=== PATIENT | female | born 1990 | race American Indian/Alaskan Native ===

== ENCOUNTER 2016-04-04 15:48 | Emergency (ER) | payer BC ==
[2016-04-04] MEDS ORDERED: ZOFRAN IM ONE (23:27)
[2016-04-04] MEDS ORDERED: TORADOL IM ONE (23:27)
--- NOTE | 2016-04-04 23:57 | Emergency Department Report ---
ED Headache HPI - General Chief Complaint: Headache Stated Complaint: MIGRAINES/NAUSEA/FATIGUE Time Seen by Provider: 04/04/16 23:23 - History of Present Illness Initial Comments: 26 y/o female complain of migraine headache x 1 week .pt voice complain of nausea and weakness .pt state she has history of migraine headache ,she normal take Topamax and propranolol but current out .pt state she has taken excerdin with relief on yesterday Timing/Duration: 1 week Quality: moderate Head Injury Location: frontal Recent Head Trauma: chronic headaches Modifying Factors: improves with: movement Associated Symptoms: denies symptoms Allergies/Adverse Reactions: Allergies metronidazole Allergy (Verified 04/04/16 16:30) Unknown pineapple Allergy (Verified 04/04/16 16:30) Hives sulfamethoxazole [From Bactrim] Allergy (Verified 04/04/16 16:30) Hives trimethoprim [From Bactrim] Allergy (Verified 04/04/16 16:30) Hives Home Medications: Ambulatory Orders Ibuprofen [Motrin] 800 mg PO Q8HR PRN #30 tablet 04/04/16 Ondansetron [Zofran Odt] 4 mg PO DAILY #20 tab.rapdis 04/04/16 ED Review of Systems ROS: Stated complaint: MIGRAINES/NAUSEA/FATIGUE Other details as noted in HPI Constitutional: denies: chills, fever Eyes: denies: eye pain, eye discharge, vision change ENT: denies: ear pain, throat pain Respiratory: denies: cough, shortness of breath, wheezing Cardiovascular: denies: chest pain, palpitations Endocrine: no symptoms reported Gastrointestinal: nausea. denies: abdominal pain, diarrhea Genitourinary: denies: urgency, dysuria, discharge Musculoskeletal: denies: back pain, joint swelling, arthralgia Skin: denies: rash, lesions Neurological: headache. denies: weakness, paresthesias Psychiatric: denies: anxiety, depression Hematological/Lymphatic: denies: easy bleeding, easy bruising ED Past Medical Hx - Past Medical History Previous Medical History?: Yes Hx Headaches / Migraines: Yes - Surgical History Past Surgical History?: No - Social History Smoking Status: Never Smoker Substance Use Type: Alcohol, Prescribed - Medications Home Medications: Home Medications Medication Instructions Recorded Confirmed Last Taken Type Ibuprofen [Motrin] 800 mg PO Q8HR PRN #30 tablet 04/04/16 Unknown Rx Ondansetron [Zofran Odt] 4 mg PO DAILY #20 tab.rapdis 04/04/16 Unknown Rx ED Physical Exam - General Limitations: No Limitations General appearance: alert, in no apparent distress - Head Head exam: Present: atraumatic, normocephalic - Eye Eye exam: Present: normal appearance, PERRL Pupils: Present: normal accommodation - ENT ENT exam: Present: normal exam, mucous membranes moist - Neck Neck exam: Present: normal inspection - Respiratory Respiratory exam: Present: normal lung sounds bilaterally. Absent: respiratory distress - Cardiovascular Cardiovascular Exam: Present: regular rate, normal rhythm. Absent: systolic murmur, diastolic murmur, rubs, gallop - GI/Abdominal GI/Abdominal exam: Present: soft, normal bowel sounds - Extremities Exam Extremities exam: Present: normal inspection - Back Exam Back exam: Present: normal inspection - Neurological Exam Neurological exam: Present: alert, oriented X3 - Psychiatric Psychiatric exam: Present: normal affect, normal mood - Skin Skin exam: Present: warm, dry, intact, normal color. Absent: rash ED Course Vital Signs 04/04/16 16:27 Temperature 98.1 F Pulse Rate 79 Respiratory 20 Rate Blood Pressure 132/86 O2 Sat by Pulse 100 Oximetry ED Medical Decision Making - Medical Decision Making migraine headache pt has history of migraine headache .pt current on medication Critical care attestation.: If time is entered above; I have spent that time in minutes in the direct care of this critically ill patient, excluding procedure time. ED Disposition Clinical Impression: Migraine Qualifiers: Migraine type: without aura Status migrainosus presence: without status migrainosus Intractability: not intractable Qualified Code(s): G43.009 - Migraine without aura, not intractable, without status migrainosus Disposition: DISCHARGED TO HOME OR SELFCARE Is pt being admited?: No Does the pt Need Aspirin: No Condition: Stable Instructions: Migraine Headache (ED) Prescriptions: Ibuprofen [Motrin] 800 mg PO Q8HR PRN #30 tablet PRN Reason: Pain Ondansetron [Zofran Odt] 4 mg PO DAILY #20 tab.rapdis Referrals: PRIMARY CARE, [Primary Care Provider] - 3-5 Days Forms: Work/School Release Form(ED) Time of Disposition: 00:14
[2016-04-05 00:11] VITALS: BP 133/88
== END 2016-04-05 00:20 | disposition home or self-care (01) ==
LOC: ED 15:48
DX: G43.009 Migraine without aura, not intractable, without status migrainosus (principal); Z91.018 Allergy to other foods; Z88.8 Allergy status to other drugs, medicaments and biological substances
CPT/HCPCS: 96372; 99282; J1885; J2405